=== PATIENT | female | born 1985 | race Caucasian/White ===

== ENCOUNTER 2017-12-31 05:14 | Emergency (ER) | payer SELFPAY ==
[~2017-12-31] VITALS: Ht 157.5 cm; Wt 74.1 kg
[2017-12-31 05:35] LABS: APPEARANCE SL.HAZY ((CLEAR)); BILIRUBIN NEGATIVE; BLOOD NEGATIVE; COLOR YELLOW ((YELLOW)); GLUCOSE (STRIP) NEGATIVE; KETONES NEGATIVE; LEUKOCYTES TRACE; NITRITE NEGATIVE; PROTEIN (STRIP) NEGATIVE; SPECIFIC GRAVITY 1.023 (1.000-1.030); UROBILINOGEN 0.2 MG/DL (0.2-1.0)
[2017-12-31 05:40] LABS: BACTERIA 1+ /HPF; EPITHELIAL CELLS 2+ /HPF; MUCUS TRACE /LPF; RED BLOOD CELLS 0-5 /HPF (0-5); UCUL ADDED? YES
[2017-12-31 05:50] LABS: HEMATOCRIT 36.9 % (36.0-46.0); HEMOGLOBIN 12.7 G/DL (11.9-15.5); MCH 30.4 PG (29.0-34.0); MCHC 34.4 G/DL (30.0-36.0); MCV 88.3 FL (83-99); PLATELET COUNT 216 K/uL (156-360); RBC DIS.WIDTH-CV 13.5 % (11.8-14.6); RBC DIS.WIDTH-SD 43.8 % (39-53); RED BLOOD COUNT 4.18 M/uL (3.80-5.20); WHITE BLOOD COUNT 5.6 K/uL (4.1-10.2)
[2017-12-31 06:00] LABS: ALBUMIN 4.5 g/dL (3.2-4.8); CHLORIDE 107 mEq/L (99-109); SODIUM 140 mEq/L (136-147)
[2017-12-31 06:02] LABS: GLUCOSE 98 mg/dL (70-99); TOTAL PROTEIN 7.1 g/dL (6.4-8.3)
[2017-12-31 06:04] LABS: TOTAL BILIRUBIN 0.4 mg/dL (0.0-1.0)
[2017-12-31 06:06] LABS: ALKALINE PHOSPHATASE 54 IU/L (3-129); CREATININE 0.7 mg/dL (0.6-1.3)
[2017-12-31 06:07] LABS: UREA NITROGEN (BUN) 7 mg/dL (9-23)
[2017-12-31 06:08] LABS: AST (GOT) 22 IU/L (2-34)
[2017-12-31 06:09] LABS: ALT (GPT) 24 IU/L (3-49)
[2017-12-31 06:15] LABS: QUANTITATIVE HCG < 4.0 MIU/ML
[2017-12-31 06:20] LABS: GFR ESTIMATE (CALCULATED) > 59 mL/min/
[2017-12-31] MEDS ORDERED: NAPROSYN500 MG PO (08:47)
[2017-12-31] MEDS ORDERED: KEFLEX500 MG PO (08:47)
[2017-12-31 09:06] VITALS: BP 114/74
== END 2017-12-31 09:07 | disposition home or self-care (01) ==
LOC: EME 05:14
DX: N39.0 Urinary tract infection, site not specified (principal); N89.8 Other specified noninflammatory disorders of vagina; Z72.0 Tobacco use
CPT/HCPCS: 80053; 81003; 84702; 85027; 87077; 87086; 99281; 99283